=== PATIENT | female | born 1945 | race Caucasian/White ===

== ENCOUNTER → 2016-05-30 | Outpatient (REF) | payer MEDICARE, OTHER ==
[2016-05-30 11:42] LABS: ALBUMIN 3.4 GM/DL (3.2-5.2); ALBUMIN/GLOBULIN RATIO 1.06 (1.00-1.93); BILIRUBIN,TOTAL 0.3 MG/DL (0.2-1.0); CALCIUM LEVEL 8.7 MG/DL (8.8-10.2); CREATININE FOR GFR 0.98 MG/DL (0.55-1.02); GLOMERULAR FILTRATION RATE 59.6 (>39); TOTAL PROTEIN 6.6 GM/DL (6.4-8.2)
[2016-05-30 11:45] LABS: POTASSIUM SERUM 5.2 MEQ/L (3.5-5.1)
== END ==
LOC: M SFHCCLAY 08:47
PROVIDERS: ATTEND Nurse Practitioner
DX: Z00.00 Encounter for general adult medical examination without abnormal findings (principal); E11.8 Type 2 diabetes mellitus with unspecified complications; E78.5 Hyperlipidemia, unspecified

== ENCOUNTER → 2016-08-26 | Outpatient (REF) | payer MEDICARE, OTHER | LOC: M SFHCCLAY 13:59 | PROVIDERS: ATTEND Nurse Practitioner | DX: R39.9 Unspecified symptoms and signs involving the genitourinary system (principal) | CPT/HCPCS: 81002; 87086; G0463 ==

== ENCOUNTER → 2016-10-08 | Outpatient (REF) | payer MEDICARE, OTHER | LOC: M SFHCCLAY 13:58 | PROVIDERS: ATTEND Nurse Practitioner | DX: M79.672 Pain in left foot (principal) ==

== ENCOUNTER → 2016-10-08 | Outpatient (CLI) | payer MEDICARE, OTHER ==
--- NOTE | 2016-10-08 14:50 | REP ---
LEFT FOOT, FOUR VIEWS: HISTORY: Pain. There is no acute fracture or dislocation. There is narrowing of the tarsal, tarsometatarsal, metatarsophalangeal , intermediate and distal interphalangeal joint spaces. Small osteophytes are present at the distal interphalangeal joint spaces of the 1st through 3rd digits. Osteophytes are present on the inferior and posterior calcaneus. IMPRESSION: Degenerative change as described above.
== END ==
LOC: M CLY 14:14
PROVIDERS: ATTEND Nurse Practitioner
DX: M19.072 Primary osteoarthritis, left ankle and foot (principal); M79.672 Pain in left foot
CPT/HCPCS: 73630; 84550; G0463

== ENCOUNTER → 2016-12-04 | Outpatient (REF) | payer MEDICARE, OTHER ==
[2016-12-04 12:21] LABS: ALBUMIN 3.6 GM/DL (3.2-5.2); ALBUMIN/GLOBULIN RATIO 0.97 (1.00-1.93); ALKALINE PHOSPHATASE 63 U/L (45-117); ALT/SGPT 17 U/L (12-78); ANION GAP 5 MEQ/L (8-16); AST/SGOT 13 U/L (15-37); BILIRUBIN,TOTAL 0.4 MG/DL (0.2-1.0); BLOOD UREA NITROGEN 17 MG/DL (7-18); CALCIUM LEVEL 9.4 MG/DL (8.8-10.2); CARBON DIOXIDE LEVEL 30 MEQ/L (21-32); CHLORIDE LEVEL 103 MEQ/L (98-107); CHOLESTEROL LEVEL 193 MG/DL (<200); CREATININE FOR GFR 0.93 MG/DL (0.55-1.02); GLOMERULAR FILTRATION RATE > 60.0 (>39); GLUCOSE, FASTING 99 MG/DL (83-110); SODIUM LEVEL 138 MEQ/L (136-145); TOTAL PROTEIN 7.3 GM/DL (6.4-8.2); TRIGLYCERIDES LEVEL 81 MG/DL (<150)
[2016-12-04 12:28] LABS: POTASSIUM SERUM 5.5 MEQ/L (3.5-5.1)
[2016-12-05 14:35] LABS: URIC ACID 5.7 MG/DL (2.6-6.0)
== END ==
LOC: M SFHCCLAY 09:06
PROVIDERS: ATTEND Nurse Practitioner
DX: I10 Essential (primary) hypertension (principal); E11.8 Type 2 diabetes mellitus with unspecified complications

== ENCOUNTER → 2016-12-05 | Outpatient (REF) | payer MEDICARE, OTHER | LOC: M SFHCCLAY 11:32 | PROVIDERS: ATTEND Nurse Practitioner | DX: I10 Essential (primary) hypertension (principal); Z53.8 Procedure and treatment not carried out for other reasons ==

== ENCOUNTER → 2017-08-20 | Outpatient (REF) | payer MEDICARE, OTHER ==
[2017-08-20 11:59] LABS: BASO % 0.4 % (0.0-1.0); EOS # 0.5 10^3/uL (0.0-0.50); EOS % 6.7 % (0.0-3.0); HEMATOCRIT 33.3 % (36.0-47.0); HEMOGLOBIN 10.9 g/dl (12.0-15.5); IMMATURE GRANULOCYTE % 0.1 % (0-3.0); LYMPH % 13.7 % (24.0-44.0); MEAN CORPUSCULAR HEMOGLOBIN 31.5 pg (27.0-33.0); MEAN CORPUSCULAR HGB CONC 32.7 g/dl (32.0-36.5); MEAN CORPUSCULAR VOLUME 96.2 fl (80.0-96.0); MONO # 0.6 10^3/uL (0.0-0.8); MONO % 8.6 % (0.0-5.0); NEUTROPHILS # 4.9 10^3/uL (1.8-7.7); NEUTROPHILS % 70.5 % (36.0-66.0); PLATELET COUNT, AUTOMATED 253 10^3/uL (150-450); RED BLOOD COUNT 3.46 10^6/uL (4.00-5.40); RED CELL DISTRIBUTION WIDTH 14.2 % (11.5-14.5)
[2017-08-20 12:41] LABS: ALBUMIN 3.6 GM/DL (3.2-5.2); ALBUMIN/GLOBULIN RATIO 1.03 (1.00-1.93); ALKALINE PHOSPHATASE 66 U/L (45-117); ALT/SGPT 19 U/L (12-78); ANION GAP 7 MEQ/L (8-16); AST/SGOT 12 U/L (7-37); BILIRUBIN,TOTAL 0.4 MG/DL (0.2-1.0); BLOOD UREA NITROGEN 21 MG/DL (7-18); CALCIUM LEVEL 9.2 MG/DL (8.8-10.2); CARBON DIOXIDE LEVEL 27 MEQ/L (21-32); CHLORIDE LEVEL 104 MEQ/L (98-107); CREATININE FOR GFR 0.84 MG/DL (0.55-1.30); GLOMERULAR FILTRATION RATE > 60.0 (>39); GLUCOSE, FASTING 110 MG/DL (70-100); IRON (FE) 53 UG/DL (50-170); SODIUM LEVEL 138 MEQ/L (136-145); TOTAL PROTEIN 7.1 GM/DL (6.4-8.2)
[2017-08-20 12:46] LABS: POTASSIUM SERUM 5.2 MEQ/L (3.5-5.1)
[2017-08-20 12:51] LABS: CREATININE, URINE 47.2 MG/DL; MAU/CREAT RATIO 16.9 MCG/MG (0.0-30.0)
[2017-08-20 13:43] LABS: ESTIMATED AVERAGE GLUCOSE 154 MG/DL (60-110)
[2017-08-20 14:10] LABS: VITAMIN B12 LEVEL 805 PG/ML (247-911)
[2017-08-20 14:11] LABS: FOLATE 23.6 NG/ML (>5.4)
== END ==
LOC: M SFHCCLAY 09:08
DX: D64.9 Anemia, unspecified (principal); E11.8 Type 2 diabetes mellitus with unspecified complications
CPT/HCPCS: 82746

== ENCOUNTER → 2018-04-14 | Outpatient (REF) | payer MEDICARE, OTHER ==
[2018-04-15 11:40] LABS: BASO # 0.1 10^3/uL (0.0-0.2); BASO % 0.7 % (0.0-1.0); EOS # 0.6 10^3/uL (0.0-0.50); EOS % 6.1 % (0.0-3.0); HEMATOCRIT 33.7 % (36.0-47.0); HEMOGLOBIN 10.6 g/dl (12.0-15.5); LYMPH # 1.2 10^3/uL (1.5-4.5); MEAN CORPUSCULAR HEMOGLOBIN 30.4 pg (27.0-33.0); MEAN CORPUSCULAR HGB CONC 31.5 g/dl (32.0-36.5); MEAN CORPUSCULAR VOLUME 96.6 fl (80.0-96.0); MONO # 0.7 10^3/uL (0.0-0.8); MONO % 6.9 % (0.0-5.0); NEUTROPHILS # 7.2 10^3/uL (1.8-7.7); NEUTROPHILS % 73.8 % (36.0-66.0); PLATELET COUNT, AUTOMATED 285 10^3/uL (150-450); RED BLOOD COUNT 3.49 10^6/uL (4.00-5.40); WHITE BLOOD COUNT 9.8 10^3/uL (4.0-10.0)
[2018-04-15 12:04] LABS: ALBUMIN 3.8 GM/DL (3.2-5.2); BILIRUBIN,TOTAL 0.4 MG/DL (0.2-1.0); CALCIUM LEVEL 9.2 MG/DL (8.8-10.2); CHOLESTEROL RISK RATIO 2.435 (<5); CREATININE FOR GFR 1.13 MG/DL (0.55-1.30); GLOMERULAR FILTRATION RATE 50.2 (>39); POTASSIUM SERUM 5.5 MEQ/L (3.5-5.1); TOTAL PROTEIN 7.3 GM/DL (6.4-8.2)
[2018-04-15 12:43] LABS: HEMOGLOBIN A1c 7.4 %
== END ==
LOC: M SFHCCLAY 14:49
PROVIDERS: ATTEND Family Medicine
DX: E11.40 Type 2 diabetes mellitus with diabetic neuropathy, unspecified (principal); D64.9 Anemia, unspecified
CPT/HCPCS: 80053; 80061; 83036; 83540; 85025; G0463

== ENCOUNTER → 2018-05-10 | Outpatient (REF) ==
--- NOTE | 2018-05-11 14:13 | REP ---
CHEST X-RAY: Single view. HISTORY: Autopsy. FINDINGS: There is evidence of opaque debris scattered in the right chest. There are metallic opacities superimposed on the lower rib cage bilaterally. The lungs are well inflated and clear. Cardiomediastinal silhouette is unremarkable. The thoracic aorta is somewhat tortuous. There are degenerative changes in the thoracic and lumbar spine with a mild dextroconvex curvature. No rib or other fracture is appreciated. Electronically Signed by Juan Gutierrez MD 05/11/2018 03:22 P
--- NOTE | 2018-05-11 14:13 | REP ---
Skull and C-spine: Two views. History: Autopsy. Findings: Bony calvarium is intact. No facial fracture is apparent. There are foci of opaque debris in or superimposed on the soft tissues of the right supraclavicular and subclavicular region. Limited visualization of the cervical spine on lateral view. There is degenerative disc disease at C3-4 with anterior subluxation of C3, 4 mm with respect to C4. There is osteoarthritic facet disease visible and this anterolisthesis may be degenerative. No other significant finding. Electronically Signed by Juan Gutierrez MD 05/11/2018 03:22 P
== END ==
LOC: M LAB 13:46
DX: Z02.89 Encounter for other administrative examinations (principal)